=== PATIENT | male | born 1960 | race Caucasian/White ===

== ENCOUNTER → 2018-07-29 | Outpatient (CLI) | payer OTHER | LOC: FIMAGING 09:00 | PROVIDERS: ATTEND Internal Medicine Pulmonary Disease | DX: R07.9 Chest pain, unspecified (principal); K21.9 Gastro-esophageal reflux disease without esophagitis; K44.9 Diaphragmatic hernia without obstruction or gangrene ==

== ENCOUNTER → 2018-08-27 | Outpatient (CLI) | payer OTHER | LOC: FIMAGING 10:53 ==